=== PATIENT | female | born 1995 | race Hispanic/Latino ===

== ENCOUNTER → 2021-10-16 13:50 | Outpatient (CLI) | payer OTHER, SELFPAY ==
--- NOTE | ~2021-10-16 | XR_ITS ---
EXAMINATION: XR chest 2V DATE: 10/16/2021 14:22 INDICATION: Unspecified asthma, uncomplicated. Cough and shortness of breath. Wheezing. TECHNIQUE: Frontal and lateral views of the chest were obtained. COMPARISON: None. FINDINGS: The chest demonstrates clear lungs without pneumonia, pleural effusion, or pneumothorax. Th e heart size is normal. IMPRESSION: 1. No acute cardiopulmonary disease. Reviewed, dictated and finalized at location A. HIC MANAGER
== END ==
PROVIDERS: PCP Nurse Practitioner Family; Visit Provider Nurse Practitioner
DX: J45.909 Unspecified asthma, uncomplicated (principal)
CPT/HCPCS: 71046

== ENCOUNTER 2021-11-04 13:22 | Outpatient (CLI) | payer OTHER, SELFPAY ==
--- NOTE | 2021-11-05 12:01 | WPDPFTINT ---
PFT Procedure Performed PFT Procedure Performed Spirometry with Pre/Post Bronchodilator Plethysmography (Lung Vol) Diffusing Cap (DLCO) Flow Vol Loop PFT Interpretation Lung volumes were measured with the body plethysmography method. Lung volumes are unremarkable. Spirometry showed normal expiratory flow rates and a normal FEV1 to FVC ratio of 86%. Following administration of a bronchodilator, there was no significant increase in expiratory flow rates. Lung diffusion capacity is within the normal range. The flow volume loop is unremarkable. Impression: Spirometry, lung volumes, and lung diffusion capacity all within the normal range.
== END 2021-11-04 13:23 | disposition home or self-care (01) ==
LOC: ANHPFT 13:25
PROVIDERS: PCP Nurse Practitioner Family; Visit Provider Nurse Practitioner
DX: J45.909 Unspecified asthma, uncomplicated (principal)
CPT/HCPCS: 94060; 94726; 94729

== ENCOUNTER 2021-12-09 12:30 | Outpatient (CLI) | payer OTHER, SELFPAY ==
--- NOTE | 2021-12-09 | ECHO_ITS ---
Patient Info Name: Lucy Garg Age: 26 years : 1995 Gender: Female Ht: 64 in Wt: 155 lbs BSA: 1.80 m2 HR: 81 bpm BP: 122 / 85 mmHg Heart Rhythm: Sinus Rhythm Exam Date: 12/09/2021 1:20 PM Exam Location: [facility] Patient Status: Outpatient Admit Date: 12/09/2021 Staff Ordering Physician: Js, Cici GARCIA Software Engineer Mobile: Spencer Vazquez, CECILIA, RT Attending Provider: Js, Cici GARCIA Exam Type: CA echo doppler color flow Study Info Indications R06.02 - Shortness of breath Complete two-dimensional, color flow and Doppler transthoracic echocardiogram is performed. Strain analysis performed. Summary 1. Complete two-dimensional, color flow and Doppler transthoracic echocardiogram is performed. 2. Normal left ventricular size and thickness with good contractility of all segments and no segmental wall motion abnormalities. Ejection fraction is 61%. Normal global longitudinal strain, -20%. 3. No significant valve disease. 4. Unable to calculate right ventricular systolic pressure on this study. 5. Normal sinus rhythm. Left Ventricular Outflow Tract Name Value Normal LVOT 2D LVOT Diameter 2.0 cm LVOT Doppler LVOT Peak Gradient 6 mmHg LVOT Mean Gradient 3 mmHg LVOT VTI 23 cm LVOT VTI/AV VTI Ratio 0.9 LVOT Stroke Volume 71 ml LVOT CO 5.4 l/min LVOT CI 3.0 l/min/m2 Mitral Valve Name Value Normal MV Doppler MV Decel Saunders 417 cm/s2 MV PHT 57 ms MV Area (PHT) 3.9 cm2 4.0-5.0 MV Diastolic Function MV E Peak Velocity 82 cm/s MV A Peak Velocity 55 cm/s MV E/A 1.5 MV Decel Time 196 ms MV Annular TDI MV E/e' (Septal) 7.4 <=8.0 MV E/e' (Lateral) 4.3 <=8.0 MV E/e' (Average) 5.8 Tricuspid Valve Name Value Normal TV Diastolic Function RV MPI 0.29 <=0.43 Aortic Valve Name Value Normal
== END 2021-12-09 12:31 | disposition home or self-care (01) ==
PROVIDERS: PCP Nurse Practitioner Family; Visit Provider Nurse Practitioner
DX: R06.09 Other forms of dyspnea (principal)
CPT/HCPCS: 93306

== ENCOUNTER 2021-12-17 12:27 | Outpatient (CLI) | payer OTHER, SELFPAY ==
--- NOTE | 2021-12-18 12:15 | P.METCHAL_ITS ---
Methacholine Procedure Perform Procedure Performed Methacholine Challenge Methacholine Challenge This is a methacholine challenge test. The test was performed and interpreted in accordance with the 2017 ERS technical standard, endorsed by the ATS, using the GLI 2012 reference equations. Testing was performed with increasing doses of nebulized methacholine following a quadrupling dosage protocol. The methacholine dose was delivered via the Brainloop Micromist nebulizer using a 1-minutes tidal breathing protocol. The best post-methacholine FEV1 values were used to determine the change from the post diluent FEV1. The delivered dose of methacholine was used to calculate the provocative dose causing a 20% fall in FEV1 (PD 20). Findings: Baseline FEV1 3.19 L, 110% predicted. Post diluent FEV1 3.30 L Post 1.81 mcg methacholine FEV1 3.05 L, decreased 8% Post 7.26 mcg methacholine FEV1 3.25 L, decreased 2% Post 29.03 mcg methacholine FEV1 3.05 L, decreased 8% Post 116.1 mcg methacholine FEV1 3.13 L, decreased 5% Post 464.4 mcg methacholine FEV1 3.07 L, decreased 7% Post albuterol nebulization FEV1 3.26 L Impression: The PD20 is > 400 mcg which is categorized as normal bronchial responsiveness. There are no prior methacholine challenge studies for comparison
== END 2021-12-17 12:28 | disposition home or self-care (01) ==
LOC: ANHPFT 12:29
PROVIDERS: PCP Nurse Practitioner Family; Visit Provider Nurse Practitioner
DX: J45.909 Unspecified asthma, uncomplicated (principal)
CPT/HCPCS: 94070; J7674

== ENCOUNTER 2022-01-18 10:41 | Emergency (ER) | payer OTHER, SELFPAY ==
[2022-01-18] VITALS (10 sets, daily range): BP systolic 118–143; BP diastolic 75–96; PULSE 62–93; RESP 15–26; TEMP 36.9; O2SAT 99–100
--- NOTE | ~2022-01-18 | CT_ITS ---
EXAMINATION: CT cervical spine wo con DATE: 01/18/2022 11:25 INDICATION: Neck pain after fall TECHNIQUE: Computed tomography (CT) of the cervical spine was performed without intravenous contrast. The dose-length product was 307 mGy-cm. COMPARISON: None FINDINGS: There is straightening of cervical lordosis, likely due to muscle spasm or patient position ing. Vertebral body heights are maintained. No significant disc narrowing. There is anatomic alignmen t. No acute fracture, subluxation or dislocation. Odontoid process is within normal limits. Lung apic es are normal. IMPRESSION: 1. No acute fracture. Reviewed, dictated and finalized at location B. KEAG OPERATOR IMPRESSION: 1. No acute fracture.
--- NOTE | ~2022-01-18 | CT_ITS ---
EXAMINATION: CT BRAIN W/O DATE: 01/18/2022 11:25 INDICATION: Headache. Status post fall. TECHNIQUE: Computed tomography (CT) of the head was performed without intravenous contrast. The dose- length product was 605.33 mGy-cm. Automated exposure control and iterative reconstruction technique w ere employed. COMPARISON: No prior studies for comparison. FINDINGS: Normal brain parenchymal volume for age. Normal pineda-white differentiation. No acute intrac ranial hemorrhage, infarction, mass or mass effect. No ventriculomegaly or midline shift. Midline sagittal images demonstrate a normal corpus callosum, c raniovertebral junction and sella turcica. Basilar cisterns are patent. Paranasal sinuses and mastoids are pneumatized. No depressed skull fractures. IMPRESSION: 1. No acute intracranial abnormality. Reviewed, dictated and finalized at location B. ASE ASSEMBLER
--- NOTE | 2022-01-18 11:11 | ED.HEATRA ---
HPI - Head Injury General Chief complaint: Syncope Stated complaint: fall yesterday, headache/blurred vision Time Seen by Provider: 01/18/22 11:02 Source: patient Mode of arrival: ambulatory Limitations: no limitations History of Present Illness HPI Narrative: 26 y/o female presents to the ER today for headache, blurred vision and nausea after falling yesterday and hitting her head. She says that she was on some steps yesterday and fell back. A friend was there to catch her but she hit her head on the wall. She says that she feels sore all over but she has left sided headache today. Her vision is blurred a little and she feels nauseated. No numbness or tingling. No extremity weakness. She says that she did not have any LOC. Related Data Allergies Allergy/AdvReac Type Severity Reaction Status Date / Time No Known Allergies Allergy Unverified 07/07/17 11:28 Review of Systems Constitutional: Constitutional: Reports no additional constitutional complaints, Denies chills, Denies fever(s) and Denies weakness Eyes: Eyes: Reports change in vision and Reports photophobia ENT: Reports system reviewed and no additional complaints, except as documented Cardiovascular: Cardiovascular: Reports no additional cardiovascular complaints and Denies chest pain Respiratory: Respiratory: Reports no additional respiratory complaints and Denies dyspnea Gastrointestinal: Gastrointestinal: Denies diarrhea, Reports nausea and Denies vomiting Genitourinary: Genitourinary: Reports no additional female genitourinary complaints Musculoskeletal: Musculoskeletal: Reports myalgias and Denies arthralgias Comments: neck pain Integumentary/Breasts: Skin/Breast: Reports system reviewed and no additional complaints, except as docu Neurologic: Reports dizziness, Denies syncope, Reports headache(s), Denies focal weakness and Denies numbness Psychiatric: Psychiatric: Reports no additional psychiatric complaints Endocrine: Endocrine: Reports no additional endocrine complaints Exam Const: General: no acute distress and alert Orientation/consciousness: patient oriented x3 HENMT: Head: normal to inspection Eyes: Conjunctivae: conjunctivae normal Pupils: Equal, round and reactive pupils present EOM: EOMs intact bilaterally Direct Ophthalmoscopy: No photophobia Neck: Neck: normal visual inspection Chest: Chest palpation & inspection: normal inspection of the chest Resp: Effort & Inspection: normal respiratory effort Cardio: Rate: regular rate Rhythm: regular rhythm GI: GI Palp: Yes Soft to palpation, No Tenderness to palpation present (GI) and No Guarding due to palpation present (GI) Auscultation: normal bowel sounds : General: Yes no CVA tenderness Course Course Emergency Course: uncomplicated Vital Signs Vital signs: Vital Signs Temperature 36.9 C 01/18/22 10:45 Pulse Rate 76 01/18/22 10:45 Respiratory Rate 18 01/18/22 10:45 Blood Pressure 143/96 H 01/18/22 10:45 Pulse Oximetry 100 01/18/22 10:45 Temperature 36.9 C 01/18/22 10:45 Pulse Rate 76 01/18/22 10:45 Respiratory Rate 18 01/18/22 10:45 Blood Pressure 143/96 H 01/18/22 10:45 Pulse Oximetry 100 01/18/22 10:45 MDM - Head Injury Differential Diagnosis Differential diagnosis: Likely concussion without loss of consciousness, closed head injury, subarachnoid hematoma, postconcussion syndrome and subdural hematoma Medical Records Attestation: I reviewed the patient's medical records. Lab Data Labs: UCG Bedside Result Negative Reference Range: Negative Imaging Data Radiologist's impression: CT Head - no acute findings, CT cervical spine - no fracture Discharge Plan Discharge Clinical Impression: Minor head injury without loss of consciousness, Concussion, Acute cervical myofascial strain Patient Disposition: Home, Self-Care Condition: Stable Instructions: Antibioti
[2022-01-18] MEDS: ONDANSETRON HCL ODT 4 MG TABLET PO (11:45)
[2022-01-18] MEDS: ACETAMINOPHEN 500 MG TABLET 1000 MG PO (11:45)
== END 2022-01-18 13:09 | disposition home or self-care (01) ==
PROVIDERS: Emergency Provider Nurse Practitioner Family; PCP Nurse Practitioner Family
DX: S06.0X0A Concussion without loss of consciousness, initial encounter (principal); S16.1XXA Strain of muscle, fascia and tendon at neck level, initial encounter; W10.9XXA Fall (on) (from) unspecified stairs and steps, initial encounter
CPT/HCPCS: 70450; 72125; 81025; 99284; A9270; L0140

== ENCOUNTER 2023-02-17 09:11 | Emergency (ER) | payer OTHER, SELFPAY ==
[2023-02-17 09:22] VITALS: BP 143/77; PULSE 74; RESP 16; TEMP 36.6; O2SAT 97
--- NOTE | 2023-02-17 09:36 | ED.URI ---
HPI - URI/Sore Throat General Chief Complaint: Upper Respiratory Infection Stated Complaint: Sore Throat Time Seen by Provider: 02/17/23 09:36 Source: patient, RN notes reviewed and old records reviewed Mode of arrival: ambulatory Limitations: no limitations History of Present Illness HPI Narrative: 27-year-old female presents to the [facility] with complaints of a sore throat, sinus congestion, bilateral ear pain that started yesterday. Had taken 1 dose of DayQuil yesterday when her symptoms started. Woke up this morning feeling a little bit worse. Has not taken her temperature. Onset (ago): day(s) (1) Related Data Allergies Allergy/AdvReac Type Severity Reaction Status Date / Time No Known Allergies Allergy Unverified 02/17/23 09:34 Review of Systems Review of Systems: All systems reviewed & are unremarkable except as noted in HPI and below Constitutional: Constitutional: Reports no additional constitutional complaints Eyes: Eyes: Reports no additional eye complaints ENT: Reports as per HPI, Reports otalgia (Bilateral), Reports nasal congestion and Reports sore throat Cardiovascular: Cardiovascular: Reports no additional cardiovascular complaints, Denies chest pain and Denies dyspnea Respiratory: Respiratory: Reports no additional respiratory complaints, Denies chest congestion, Denies cough and Denies dyspnea Gastrointestinal: Gastrointestinal: Reports no additional gastrointestinal complaints, Denies abdominal pain, Denies nausea and Denies vomiting Musculoskeletal: Musculoskeletal: Reports no additional musculoskeletal complaints Integumentary/Breasts: Skin/Breast: Reports system reviewed and no additional complaints, except as docu Neurologic: Reports system reviewed and no additional complaints, except as documented Psychiatric: Psychiatric: Reports no additional psychiatric complaints Allergic/Immunologic: Allergic/Immunologic: Reports no additional allergic/immunologic complaints PMFSH Comments At the time of my signature, I reviewed and agree with the nursing past medical, surgical, social, and family history. There is no relevant family history pertinent to the patient complaint. Exam Const: General: cooperative, healthy appearing, comfortable, no acute distress, well developed, alert and well nourished Nutritional Appearance: well nourished Orientation/consciousness: patient oriented x3 Limitations: no limitations HENMT: Head: normal to inspection Ears: hearing grossly normal bilaterally and external ears normal Face/Nose/Sinus: Normal external nose present, Normal nares present, Normal nasal mucous membranes and turbinates present and normal facial exam Face and sinus: normal facial exam, sinuses nontender and face symmetric Mouth: Yes Normal oral and palatal mucosa present, Yes lip normal and Yes moist mucous membranes Throat: posterior oropharynx normal, uvula midline and postnasal drainage Eyes: General: appearance normal, both eyes and all related structures Alignment and Position: alignment normal Periorbital: periorbital findings normal Conjunctivae: conjunctivae normal Pupils: Equal, round and reactive pupils present EOM: EOMs intact bilaterally Neck: Neck: normal visual inspection, full ROM, no lymphadenopathy and no meningeal signs Chest: Chest palpation & inspection: normal inspection of the chest Resp: Effort & Inspection: normal respiratory effort and able to speak in complete sentences Auscultation: clear to auscultation bilaterally, no crackles, no rales, no rhonchi and no wheezes Cardio: Rate: regular rate Rhythm: regular rhythm Back/Spine/Pelvis: Cervical Spine: cervical ROM normal Thoracic/Lumbar Spine: No thoracic spinal tenderness Skin: General skin exam: normal color and no rashes or lesions noted Lesions: no lesions Rashes: no rashes Wounds: no wounds Neuro: General: patient oriented x3, gait normal, tone normal, moves all extremities and no meningeal signs Crani
== END 2023-02-17 09:53 | disposition home or self-care (01) ==
PROVIDERS: Emergency Provider Nurse Practitioner; PCP Nurse Practitioner Family
DX: J06.9 Acute upper respiratory infection, unspecified (principal); J01.40 Acute pansinusitis, unspecified
CPT/HCPCS: 87081; 87880; 99213; G0463

== ENCOUNTER 2024-10-09 12:35 | Outpatient (CLI) | payer OTHER, SELFPAY ==
--- NOTE | ~2024-10-09 | US_ITS ---
EXAMINATION TYPE: US breast LT limited COMPARISON: NONE REASON FOR STUDY: LUMP TECHNIQUE: Targeted sonographic evaluation of the right breast was performed. INTERPRETATION: No solid or cystic lesion identified. No sonographic abnormality seen in the region scanned. IMPRESSION: Negative BI-RADS CATEGORY: BI-RADS 1: Normal. Reviewed, dictated and finalized at [facility]. ING FITTER
== END 2024-10-09 12:36 | disposition home or self-care (01) ==
PROVIDERS: PCP Nurse Practitioner Family; Visit Provider Nurse Practitioner Family
DX: N63.20 Unspecified lump in the left breast, unspecified quadrant (principal)
CPT/HCPCS: 76642